=== PATIENT | male | born 1990 | race Caucasian/White ===

== ENCOUNTER 2019-03-22 15:11 | Emergency (ER) | payer OTHER ==
[2019-03-22] MEDS ORDERED: Ciprofloxacin 500 MG TAB ONE (15:58)
== END 2019-03-22 16:03 | disposition home or self-care (01) ==
LOC: ER/OP 15:11
DX: Z20.811 Contact with and (suspected) exposure to meningococcus (principal)
CPT/HCPCS: 99281